=== PATIENT | female | born 1955 | race Caucasian/White ===

== ENCOUNTER → 2020-11-22 | Day surgery (SDC) | payer MEDICARE, OTHER ==
[~2020-11-22] VITALS: Ht 165.1 cm; Wt 68.0 kg
[~2020-11-22] MED LIST: ASCORBIC ACID500 MG PO; BENADRYL25 MG PO; CALCIUM PO; CELEXA20 MG PO; CRANBERRY400 MG PO; CRESTOR5 MG PO; DICLOFENAC PO; TRAZODONE HCL50 MG PO; VIT PO; VITAMIN D3 PO
== END | disposition home or self-care (01) ==
LOC: FAS 06:52
DX: Z12.11 Encounter for screening for malignant neoplasm of colon (principal); K57.30 Diverticulosis of large intestine without perforation or abscess without bleeding; M81.0 Age-related osteoporosis without current pathological fracture; Z79.899 Other long term (current) drug therapy; F41.9 Anxiety disorder, unspecified; M19.90 Unspecified osteoarthritis, unspecified site; Z90.710 Acquired absence of both cervix and uterus
CPT/HCPCS: J2250; J2704; J7120